=== PATIENT | male | born 2005 | race Caucasian/White ===

== ENCOUNTER 2024-11-05 18:34 | Day surgery (SDC) | payer BC, SELFPAY ==
[2024-11-05] VITALS (11 sets, daily range): BP systolic 113–140; BP diastolic 53–87; BMI 20.5; BMI 21.1
[2024-11-05] MEDS: DILAUDID 0.5 MG IV (12:17)
[2024-11-05] MEDS: ANCEF 10 IV (12:18)
--- NOTE | 2024-11-05 12:36 | ED.GENMED ---
History of Present Illness
General
Chief Complaint: Skin Surface Trauma
Source: patient
Time Seen by Provider: 11/05/24 12:09
History of Present Illness
History of Present Illness:
19-year-old male presents emergency room complaining of of injury to his left ankle from a lawnmower. Patient was using a lawnmower when he felt an insect on his back. He went to swat it and lost his balance causing him to trip over the lawnmower
and get hit in the ankle by the blade. He was wearing a heavy work boot which the blade cut through resulting in a laceration to his medial ankle. Patient is complaining of numbness of the area around his heel. He did not observe pulsatile
bleeding but his foot was in a boot initially. He has significant pain.
Phy Exam
Physical Exam
Physical Exam:
General: Awake, Alert, Oriented X3. Appears uncomfortable due to pain
Vitals: unremarkable
Head: Atraumatic
Eyes: Pupils equal, EOMI
Throat: Airway intact, no exudates
Neck: Trachea midline
Lungs: Clear and equal b/l
Heart: Regular rate, no murmurs
Neuro: Nonfocal
Skin: Warm, dry, no rash
Extremities: pulses equal b/l, no edema. MICHAEL to palpate we pulses in the posterior tibial and dorsalis pedis arteries bilaterally. Cap refill is brisk. There is a large 8 cm laceration noted at the base of the ankle extending around to the
posterior heel. The laceration overlies the Achilles tendon insertion. Patient is able to dorsiflex with pain. No pulsatile bleeding.
Course
Orders/Labs/Results
Orders:
Orders
11/05/24
CR Heel/os Calcis - Left 2 Vw* Routine
Reason For Exam: DEBRIDEMENT LEFT OS CALCIS FX
RF Fluoroscopy, C-arm Routine
11/05/24 Breakfast
Regular
At Your Request: Full Participation
Does patient need a safe tray?: No
11/05/24 12:13
HYDROmorphone [Dilaudid] 0.5 mg IV NOW STA
Ankle, Right 3 view CR [CR Ankle - Right Min 3 Views *] Urgent
Comment:
Reason For Exam: lawmower for ankle
11/05/24 12:14
CeFAZolin 2 GRAM [Ancef] 2 grams in 10 ml IV NOW
11/05/24 15:31
HYDROmorphone [Dilaudid] 1 mg .ROUTE .STK-MED ONE
11/05/24 15:33
HYDROmorphone [Dilaudid] 1 mg IV NOW STA
11/05/24 15:48
Tetanus/Diphth/Acelpertussis [Adacel] 0.5 ml IM .ONCE ONE
11/05/24 17:06
HYDROmorphone [Dilaudid] 1 mg .ROUTE .STK-MED ONE
11/05/24 17:47
Bupivacaine Pf 0.5% [Sensorcaine 0.5% Single Dose] 30 ml .ROUTE .STK-MED ONE
11/05/24 18:40
Dexamethasone Sod Phosphate [Decadron] 20 mg .ROUTE .STK-MED ONE
Fentanyl Citrate/Pf [Sublimaze] 100 mcg .ROUTE .STK-MED ONE
Lidocaine 2% Mpf [Xylocaine Mpf 2%] 100 mg .ROUTE .STK-MED ONE
Midazolam HCl [Versed] 2 mg .ROUTE .STK-MED ONE
Ondansetron Injectable [Zofran] 4 mg .ROUTE .STK-MED ONE
Propofol [Diprivan] 20 ml .ROUTE .STK-MED
11/05/24 20:24
Acetaminophen 1000MG/100Ml [Ofirmev] 1,000 mg in 100 ml .ROUTE .STK-MED
11/05/24 20:41
Fentanyl Citrate/Pf [Sublimaze] 25 mcg IV [id number] PRN
HYDROmorphone [Dilaudid] 0.25 mg IV PACU-Q5MPRN PRN
HYDROmorphone [Dilaudid] 0.5 mg IV PACU-Q5MPRN PRN
Prochlorperazine [Compazine] 5 mg IV PACU-ONCEPRN PRN
Notify MD As Directed
Notify physician if: for SDS patients with known or suspected sleep obstructive sleep apnea, monitor in the
PACU.
Notify MD for any apneic/desaturation episodes
O2 Therapy [RESP] Urgent
Titrate/Wean O2 to maintain O2 sat greater than (%): 92
Special Instructions: -Provide supplemental oxygen to achieve O2 sat of 92% or greater.
-After 15 min, may wean O2 and discontinue if patient is able to maintain O2 sat of 92%
or greater during recovery period.
If patient is a discharge home, without oxygen therapy, notify anestheiologist if
unable to maintain O2 SAT of 92% or greater on room air for MD clearance.
11/05/24 20:45
Normosol (Mult Electrolytes) [Normosol-R/Plasmalyte-A] 1,000 ml IV PER PROTOCOL
11/05/24 20:54
Propofol [Diprivan] 60 ml .ROUTE .STK-MED
11/05/24 21:02
Ketorolac [Toradol] 30 mg .ROUTE .STK-MED ONE
11/05/24 21:50
CeFAZolin 2 GRAM [Ancef] 2 grams in 10 ml IV PRE PROCEDURE
Oxycodone [Roxicodone] 5 mg PO Q4HPRN PRN
Weight Bearing Status As Directed
Weight bearing to: Left lower extremity
Type: Non Wt. bearing
Physical Therapy Consult [Pt Eval And Treat] Routine
Treatment: nwb to LLE
Activity Level: Out of Bed-Early Mobility
11/05/24 22:22
Code Status As Directed
Resuscitation Status: Full Code
Bisacodyl [Dulcolax] 10 mg RECTAL [id number] PRN
Docusate W/Senna [Senokot-S] 1 tablet PO BIDPRN PRN
Polyethylene Glycol Powder [Miralax] 17 grams PO DAILYPRN PRN
Activity As Directed
Activity Level: As Tolerated
Comment: NWB to left LE
Pneumatic Compression Sleeves As Directed
Type: Knee high
Vital Signs As Directed
Frequency: Per unit guidelines
DX Deep Vein Thrombosis Video Routine
11/05/24 22:40
ORTHOPEDIC CONSULT Routine
Consulting Provider: Otto Rivera
Was physician already notified: Yes
11/05/24 23:00
Ondansetron Injectable [Zofran] 4 mg IV PACU-ONCEPRN PRN
11/06/24 03:00
Acetaminophen [Tylenol] 650 mg PO Q4HPRN PRN
Ibuprofen [Motrin] 600 mg PO Q4HPRN PRN
11/06/24 04:00
CeFAZolin 2 GRAM [Ancef] 2 grams in 10 ml IV Q8H
11/06/24 05:41
Basic Metabolic Panel IN AM
Complete Blood Count/No Diff IN AM
11/06/24 11:00
Amoxicillin 875 mg/Clav 125 mg [Augmentin 875 mg/125 mg] 1 tablet PO Q12
11/06/24 11:46
Discharge Patient As Directed
Discharge patient after: seen again by Dr. Hernandez
Do you have a designated caregiver: Yes-same as spokesperson
11/06/24 12:00
Aspirin Chewable [Low Strength Aspirin] 81 mg PO BID
Abnormal Lab Results
11/06/24
05:41
RBC 4.33 L 10^6/uL
(4.70-6.10)
Hgb 12.7 L g/dL
(13.0-18.0)
Hct 36.2 L %
(39.0-52.0)
MPV 11.6 H fL
(7.4-10.4)
Glucose 112 H mg/dl
(70-99)
11/06/24 05:41
11/06/24 05:41
Vital Signs
Initial and Last Documented VS:
Initial Vital Signs
Temp Pulse Resp BP Pulse Ox
98.2 F 90 16 130/74 98
11/05/24 11:58 11/05/24 11:58 11/05/24 11:58 11/05/24 11:58 11/05/24 11:58
Last Documented Vital Signs
Temp Pulse Resp BP Pulse Ox
98 F 72 16 112/72 99
11/06/24 11:05 11/06/24 11:05 11/06/24 11:05 11/06/24 11:05 11/06/24 11:05
MDM/Problems Addressed
Differential Diagnosis Includes:
Achilles tendon laceration, vascular injury, nerve injury, open fracture
MDM/Problems Addressed:
Patient presents with large laceration to the left ankle which was inflicted by a lawnmower. Evaluation of the laceration reveals that is quite deep and I suspect there is significant injury to deeper structures. Not amenable to closure in the
emergency room. Communicated with podiatry. They will take the patient to the operating room. IV antibiotics administered. Tetanus updated.
*Radiology
Radiology exam reviewed: radiology read reviewed
*Pulse Oximetry
SaO2: 98
Oxygen Mode of Delivery: Room air
Patient hypoxic: no
*Critical Care Note
Total Time (30-74mins, 75-104mins- exclusive of procedures): Not Applicable
ED Attending Note
-
Portions of this chart may have been created with voice recognition software.� Occasional wrong word or��sound alike� substitutions may have occurred due to the inherent limitations of voice recognition software.
Discharge Plan
Departure
Patient Disposition: OR
Presentation/result/management discussed w/ accepting MD/DO: Dr. Flowers
Condition: Fair
Discharge Problem:
Open fracture of calcaneus, Laceration of lower leg, left, complicated
Interventions
Interventions:
*Risk Screen - Suicide Last Done: 11/05/24 11:58
*General Assessment Last Done: 11/05/24 12:21
*Neglect/Abuse Screening Last Done: 11/05/24 12:21
*ED- Fall Risk Assessment Last Done: 11/05/24 12:21
*ED COVID-19 Vaccine History Last Done: 11/05/24 22:40
*Nursing Disposition Last Done: 11/05/24 18:33
ED-Skin Assessment Last Done: 11/05/24 12:21
Discharge Date and Time
Discharge Date/Time: 11/05/24 18:34
[2024-11-05] MEDS: DILAUDID 1 MG IV (15:34)
--- NOTE | 2024-11-05 17:13 | W.PN.UPDATE ---
Update Note
Progress Note Update
19M sustained open calcaneal fx 2/2 lawnmower injury. laceration medial heel, no pulsatile bleeding, sensation intact to pedal distributions, gross motor function intact to lesser toes
- plan for OR today left foot laceration exploration with debridement
- remain NPO, NPO since 11am
- NWB LLE
- IV abx
- analgesia prn
- full consult note to follow
--- NOTE | 2024-11-05 21:47 | W.PN.SURGUPD ---
Surgical Update
Surgical Update
19 yo M s/p L ankle laceration exploration, calcaneal fracture treatment, Achilles tendon repair
-Strict NWB to LLE
-PT/OT
-Continue ancef
-Multimodal analgesia
-DC on 7-10 days antibiotics
-Follow up with myself in 2 weeks at [facility]
--- NOTE | 2024-11-05 22:09 | SUR.PHASEI ---
Rec'd sleepy flat in bed, oriented x3 by RN, denies c/o,
--- NOTE | 2024-11-05 22:15 | HPS.HSE ---
Family Physician
-
Family Physician: NOT KNOW UNKNOWN - PT DOES
Chief Complaint
-
left ankle pain
History of Present Illness
19-year-old male with no significant PMH presents emergency room complaining of of injury to his left ankle from a lawnmower. Patient was using a lawnmower when he felt an insect on his back. He went to swat it and lost his balance causing him to
trip over the lawnmower and get hit in the ankle by the blade. He was wearing a heavy work boot which the blade cut through resulting in a laceration to his medial ankle. Patient is complaining of numbness of the area around his heel. patient
underwent ankle laceration exploration, calcaneal fracture treatment, and Achilles tendon repair. At present patient denies any headache, fever, chills, chest pain, shortness of breath. Patient denies any abdominal pain, nausea, vomiting or
diarrhea. Patient denies dysuria, hematuria.
Medical History
Past Medical History
Past Medical History: Reports None
Past Surgical History: Reports Other
Additional Past Surgical History:
Lip laceration repair
Social History
Tobacco: Non-smoker
Alcohol: None
Drug: None
Family History
Family History: Not pertinent
Allergies / Home Medications
Allergies reflects when Allergies were last updated in [facility].
Home Medications with original date entered in [facility]
Allergy/Medication List:
Allergies
Allergy/AdvReac Type Severity Reaction Status Date / Time
No Known Allergies Allergy Verified 11/05/24 11:59
Review of Systems
-
Constitutional: Reports No Symptoms
EENT: Reports No Symptoms
Respiratory: Reports No Symptoms
Cardiac: Reports No Symptoms
Abdomen/GI: Reports No Symptoms
: Reports No Symptoms
Musculoskeletal: Reports No Symptoms
Skin: Reports No Symptoms
Neurological: Reports No Symptoms
Endocrine: Reports No Symptoms
Hematologic/Lymphatic: Reports No Symptoms
Psych: Reports No Symptoms
Physical Exam
Vital Signs
Vital Signs
Temp Pulse Resp BP Pulse Ox
97.8 F 67 11 113/53 100
11/05/24 22:03 11/05/24 22:03 11/05/24 22:03 11/05/24 22:03 11/05/24 22:03
Physical Exam
General: Well Developed, Well Nourished and No Apparent Distress
HEENT: NormoCephalic, Moist mucous membranes and Atraumatic
Respiratory: Clear
Cardiac: S1/S2 and Regular Rhythm; No Murmur or Rub
GI: Soft, Non Tender, Non Distended and Normal Bowel Sounds; No Organomegaly
Rectal: Deferred by Provider
Musculoskeletal: No Clubbing, No Cyanosis and No Edema
Skin: Rash and Other (Left lower extremity is wrapped)
Neuro: Nonfocal/grossly intact
Impression/Plan
-
# Left ankle fracture
- X-ray with the impression ofopen fracture of the superior posterior aspect of the calcaneus with deformity of soft tissues in this region
- Underwent left ankle laceration exploration, calcaneal fracture treatment, Achilles tendon repair
- Strict nonweightbearing to left lower extremity
- PT/OT consult
- Ancef continue
- Tylenol,Motrin, oxy as needed for pain
#DVT prophylaxis
- SCDs
# CODE STATUS
- Full code
--- NOTE | 2024-11-05 22:19 | SUR.PHASEI ---
More alert, [facility] in
[2024-11-06 00:45] VITALS: BP 114/67
[2024-11-06 01:45] VITALS: BP 106/59
--- NOTE | 2024-11-06 02:54 | W.PN.UPDATE ---
Update Note
Progress Note Update
Patient seen in conjunction with SHAN. I agree with her findings on history and physical. I concur with the assessment and plan as stated otherwise.
Briefly, this is a healthy 19-year-old with no known signal past medical history who was at her laceration to the foot following a lawnmower which.
He is status post ankle laceration exploration, calcaneal fracture treatment, Achilles tendon repair. No intraoperative complications. Patient postoperatively is doing rather well without any acute complaints. He is hemodynamically stable and in
no acute distress.
Assessment and plan
19-year-old who is status post ankle laceration exploration, calcaneal fracture treatment, Achilles tendon repair. Podiatry has seen and evaluated patient and placed recommendations.
From medical perspective patient can be managed as per podiatry recommendations
- No weightbearing to the left lower extremity
� Pain control
� Continued on antibiotics Ancef and d/c on abx for a 7-10 day course
� PT OT
DVT PPX - SCDs
Code status - full code
[2024-11-06 03:00] VITALS: BP 103/60
[2024-11-06] MEDS: ANCEF 10 IV (04:16)
[2024-11-06 06:17] LABS: Hematocrit 36.2 % (39.0-52.0); Hemoglobin 12.7 g/dL (13.0-18.0); Mean Corp Hgb Conc. 35.1 g/dL (33.0-37.0); Mean Corpuscular Volume 83.6 fL (80.0-94.0); Platelet Count 186 10^3/uL (130-400); Red Cell Dist. Width 12.2 % (11.5-14.5)
[2024-11-06 06:26] LABS: Blood Urea Nitrogen 13 mg/dl (9-20); Calcium 9.0 mg/dl (8.4-10.2); Carbon Dioxide 25 mmol/L (22-30); Chloride 105 mmol/L (98-107); Estimated Creatinine Clearance > 125 ml/min; Glucose 112 mg/dl (70-99); Potassium 4.5 mmol/L (3.5-5.1); Sodium 137 mmol/L (135-145); eGFR > 60.00
[2024-11-06 07:10] VITALS: BP 113/60
--- NOTE | 2024-11-06 09:56 | CON.SURG ---
Surgical Consultation
-
CONSULTING PHYSICIAN: Otto Rivera DPM
DATE/TIME OF REQUEST: 11/05/2024
DATE/TIME OF CONSULTATION: 11/05/2024
SUBJECTIVE: Patient is a 19-year-old male who sustained laceration
to the left heel earlier today. He came to the ER. Patient was
mowing lawn earlier today and, after fall, had his left foot under
the party plan selling distributor, sustaining laceration. He was brought to the ER and
is with father today. 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
tobacco, or illicit drug use. He drives a stick shift car. Denies
fever, chills, chest pain, shortness of breath. Complains of pain
to the heel and minimal numbness to the top of the foot when the
dressing is too tight.
PHYSICAL EXAMINATION:
GENERAL: Patient is well nourished, in no acute distress.
LEFT LOWER EXTREMITY: DP, PT pulses palpable bilateral. Capillary
refill brisk to all pedal digits. Sensation intact to all pedal
distributions. Gross motor function intact to lesser toes. FHL
reduced range of motion. There is approximately a 10 cm laceration
to the medial heel, extending from medial Achilles insertion to the
medial malleolus. Wound bed is predominantly clean, no pulsatile
bleeding. Exam limited to patient's tolerance.
Left foot radiograph: Agree with radiologist's impression.
Non-displaced, avulsed fracture fragment at the superior posterior
calcaneus.
VITAL SIGNS: Pulse 90, respirations 16, temperature 98.2,
saturating on room air.
IMPRESSION AND PLAN: The patient is a 19-year-old male with left
heel laceration and with open left calcaneus fracture that is
nondisplaced secondary to party plan selling distributor injury. Continue antibiotics.
Will plan
for OR debridement, as well as exploration of
laceration. The patient will remain n.p.o. (last date 11:00 am
11/05/2024). He will remain nonweightbearing to the left foot.
Dressing placed. Saline wet-to-dry.
--- NOTE | 2024-11-06 10:00 | OR.RPT ---
Operative Report
Operative Report
OPERATIVE REPORT
Date of Surgery:�11/05/2024
Surgeon:�Otto Rivera DPM
Assistants:�Otto Hernandez DPM
Preoperative Diagnosis:
Traumatic open laceration, medial left ankle (~8 cm), secondary to lawnmower injury
Open dorsal calcaneal fracture
Suspected Achilles tendon laceration, left ankle
Postoperative Diagnosis:
Traumatic open laceration, medial left ankle (~8 cm)
Open dorsal calcaneal fracture with devitalized bone fragment
Complete Achilles tendon laceration, left ankle
Procedure(s) Performed:
Debridement of open fracture with removal of devitalized bone fragment, left calcaneus (68526)
Primary repair of Achilles tendon, left ankle ([id number])
Layered closure of traumatic wound
Anesthesia:�MAC anesthesia with 10ccs of 0.5% bupivacaine plain
Hemostasis: Thigh tourniquet which was inflated at 300mmHg for 11 minutes
Estimated Blood Loss:�Minimal
Specimens:�None
Materials: 0 PDS, 2-0 PDS, 3-0 Monocryl, 3-0 Prolene
Complications:�None
Indications for Procedure:
The patient is a 19-year-old male who sustained a traumatic lawnmower laceration to the medial aspect of the left ankle at 11:00AM on 11/05/2024. The wound measured approximately 8 cm with exposure of soft tissue and underlying bone. Radiographs
confirmed a dorsal calcaneal fracture fragment, and there was clinical concern for Achilles tendon involvement. Given the open fracture with tendon injury, operative exploration, debridement, and repair were indicated. Risks, benefits, and
alternatives were explained to the patient, who provided informed consent.
Procedure in Detail:
The patient was brought to the operating room, placed in the supine position, and administered MAC anesthesia. The left lower extremity was prepped and draped in sterile fashion. A well padded thigh tourniquet was applied.
Attention was turned to the medial ankle which demonstrated an approximately 8cm laceration. There was no gross contamination noted to the wound. The traumatic laceration was carefully and thoroughly explored. There was no evidence of neurovascular
disruption. The tendons and other vital structures within the tarsal tunnel were examined and noted to be intact. The thigh tourniquet was briefly inflated to 300mmHg for thorough inspection of all major vessels and promptly deflated afterwards.
Attention was directed to the dorsal calcaneal fracture site. A small devitalized fracture fragment was identified. The wound, including skin, subcutaneous tissue, muscle, and bone, was sharply debrided of nonviable tissue. The dorsal calcaneal
fragment was excised, consistent with management of an open fracture. Copious irrigation was performed using several liters of sterile saline. There were no signs of residual contamination, foreign material, or infection.
The Achilles tendon was then visualized and found to be lacerated roughly 2/3rds of the cross-sectional area. The ends were refreshed and directly repaired using interrupted 0 PDS sutures in an [id number] configuration, restoring tendon
continuity and physiologic tension.
Following hemostasis, the wound was closed in layers. The deep tissue was reapproximated with 2-0 PDS, the subcutaneous layer with 3-0 Monocryl, and the skin with interrupted 3-0 Prolene sutures. A sterile dressing and a posterior splint in slight
plantarflexion were applied.
The patient tolerated the procedure well and was transferred to recovery in stable condition. He will admitted post-operatively for 24 hours and receive IV antibiotics followed by a 7-10 day course of oral antibiotics upon discharge. He will be
strictly non-weightbearing to his left lower extremity. He will follow up in the office in 1-2 weeks for an incision check.
--- NOTE | 2024-11-06 10:01 | W.PN.UPDATE ---
Update Note
Progress Note Update
19 yo M s/p L ankle laceration exploration, calcaneal fracture treatment, Achilles tendon repair. CFT wnl, no pretibial pain, sensation intact to dorsal pedal distributions, tibial nerve block still active, gross motor function intact to all toes
through full ROM, calves soft supple nontender to touch, dressings c/d/i
-Strict NWB to LLE
-PT/OT
-Continue ancef
- dressings to remain C/D/I until seen in office
-Multimodal analgesia (ice/elevation, motrin/tylenol)
-DC on 7-10 days broad spectrum po antibiotics
- Asa 81 BID for DVT ppx
-Follow up with Dr. Rivera in 2 weeks at [facility]
- patient stable for discharge to follow up in office
--- NOTE | 2024-11-06 10:29 | W.PN.HOSP.TC ---
Today's Communication/Plan
-
OK for DC after PT recommendations
Assessment / Plan
Assessment / Plan
Assessment and plan
19-year-old who is status post ankle laceration exploration, calcaneal fracture treatment, Achilles tendon repair. Podiatry has seen and evaluated patient and placed recommendations.
-NWB to LLE
-PT, trial of crutches
-will change abx to Augmentin per Podiatry recommendations
-OK for DC
- patient refuses TDap vaccine. Per reccomendations he would receive both vaccine and immune globulin. He was resistant to talk to me about getting vaccines or his vaccine history. I said my job is to educate, he was able to repeat back to me
what tetanus can cause, continues to refuse vaccine.
Anticipated Discharge: Today
Subjective/Interval History
-
Date of Service: November 06, 2024
patient is feeling well this morning and wants to go home
about to work with physical therapy
Objective Data
-
Labs:
Laboratory Results
11/06/24
05:41
WBC 10.6
Hgb 12.7 L
Hct 36.2 L
Plt Count 186
Sodium 137
Potassium 4.5
Chloride 105
Carbon Dioxide 25
BUN 13
Creatinine 0.8
Glucose 112 H
Calcium 9.0
Vital Signs:
Vital Signs
Temp Pulse Resp BP Pulse Ox
98.1 F 72 16 113/60 99
11/06/24 07:10 11/06/24 07:10 11/06/24 07:10 11/06/24 07:10 11/06/24 07:10
I&O
11/05/24 11/06/24 11/07/24
06:59 06:59 06:59
Intake Total 1880 / 1880
Output Total 1800 / 1800
Balance 80 / 80
Review of Systems
-
History Source: Patient
All other systems: Reviewed and negative
Physical Exam
-
General: No Apparent Distress
HEENT: PERRLA
Respiratory: Clear to Auscultation; Negative Wheezes
Cardiac: Regular Rhythm and S1/S2
GI: Soft and Nontender
Musculoskeletal: Other (LLE wrapped in gauze )
Skin: Warm and Dry; Negative Rash
Neuro: AO x 3
Psych: Calm
Data Reviewed
-
Diagnostic Radiology: Report Reviewed by me
Labs: Labs Reviewed by me
[2024-11-06 11:05] VITALS: BP 112/72
[2024-11-06 11:20] VITALS: BP 112/72; PULSE 72
--- NOTE | 2024-11-06 11:47 | W.DS.TRANS ---
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
-
Discharge Instructions:
Discharge Diagnosis/Procedures s/p L ankle laceration exploration, calcaneal
fracture treatment, Achilles tendon repair
25
Additional Activity no weight bearing left lower extremity, use
crutches
Driving Restrictions No driving
Bathing Restrictions None
Instructions:
Stand-Alone Forms:
Changes to Home Medications: Yes
Discharge Medications:
DC Medications w/original date entered in [employer]
amoxicillin 875 mg-potassium clavulanate 125 mg tablet 1 tab PO Q12 #19 tabs 11/06/24
aspirin 81 mg chewable tablet 81 mg PO BID #55 tabs 11/06/24
Home Medication Changes
Addition of Augment x 10 days in Aspirin 81mg PO BID for DVT PPx
Pending Results: No
[2024-11-06] MEDS: AUGMENTIN 875 MG/125 MG 1 TABLET PO (12:07)
[2024-11-06] MEDS: LOW STRENGTH ASPIRIN 81 MG PO (12:08)
--- NOTE | 2024-11-06 12:54 | CM ---
CM following re: discharge planning.
Reviewed pt's chart, met with pt.
Pt is a 19 year old male, admitted with [facility] status and primary dx of Left ankle fracture, POD#1 status post ankle laceration exploration, calcaneal fracture treatment, Achilles tendon repair.
Pt reports he lives with mother and father 2SH, 1 step to enter. pt reports he came to [facility] to help his uncle to mower the loan and fractured his ankle.
PT and OT evaluation noted - pt has no skilled needs, remains NWB on LLE, receives crutches to use and will follow up with podiatry.
Discharge orderer noted. Pt is aware and he stated his parents will transport home.
D/C plan: home no after care VN needs. Parents to transport.
--- NOTE | 2024-11-06 13:58 | W.DCSUMMARY ---
Discharge Summary
Discharge Data
Date of Admission: 11/05/24
Date of Discharge: 11/06/24
-
Pending Results: No
Hospital Course
Discharging Physician : Dr. Marilyn Robert
Disposition : Home
Primary care physician : *Unknown
Principal Discharge diagnosis : Open calcaneal fracture secondary to lawnmower injury. status post ankle laceration exploration, calcaneal fracture treatment, Achilles tendon repair on 11/05/24
Hospital Course :
Mr. Alan Caba is a 19 yo man without significant past medical history who presents to the ER after he tripped over a lawnmower resulting in getting a laceration to ankle from blade. He was seen by Podiatry in the ER and taken to surgery. He
is status post ankle laceration exploration, calcaneal fracture treatment, Achilles tendon repair. Patient did well post-op, instructed to avoid weight bearing LLE. He worked with crutches with PT. He is discharged on 10 days Augmentin and
Aspirin 81mg PO BID for DVT PPx per Podiatry recommendations. He will follow up with Dr. Rivera in 2 weeks.
Of note, patient refused TDAP vaccination or immune globulin. He states he got all of his childhood vaccinations but when I asked when his last vaccine was he refused to tell me. His mom was present for one conversation on speaker phone. He is
able to tell me that tetanus can lead to muscle rigidity, difficulty breathing and swallowing. He was educated that tetanus is in the soil and therefore he is at risk from this accident but continues to refuse.
Time spent on discharge was 35 minutes.
Important imaging findings :
Ankle X-Ray 11/05/24
IMPRESSION:
There is an open fracture of the superior posterior aspect of the calcaneus with deformity of soft tissues in this region
Procedure findings :
Discharge Plan
-
Patient Disposition: Home (Routine Discharge)
Discharge Diagnosis/Procedures: s/p L ankle laceration exploration, calcaneal fracture treatment, Achilles tendon repair 11/05/24
Additional Activity: no weight bearing left lower extremity, use crutches
Driving Restrictions: No driving
Bathing Restrictions: None
Referrals:
Otto Rivera MD [Active, Podiatry] - in two weeks
UNKNOWN - PT DOES,NOT KNOW [Family Provider]
Additional Discharge Medication Instructions: Please follow up with your PCP within one week
You may use ice to help with pain. You may take Tylenol 1G every 6 hours as needed (no more than 4G/ 24 hours). You can take Motrin 600mg once every 6-8 hours as needed (always take with food to help protect lining of your stomach).
Complete 10 day course of Augmentin. You may buy probiotics over the counter
Take aspirin 81mg twice a day to prevent blood clots (You are prescribed 28 days, follow up with Dr. Rivera how long should continue)
Prescriptions:
New
amoxicillin-pot clavulanate 875-125 mg Tablet
1 tab PO Q12 Qty: 19 0RF
aspirin 81 mg Tablet,Chewable
81 mg PO BID Qty: 55 0RF
Discharge Orders:
Discharge Patient (As Directed); Ordered 11/06/24
Ordered By: Marilyn Robert
Discharge Date and Time
Print Language: BRUNEIAN
== END 2024-11-06 15:00 | disposition home or self-care (01) ==
LOC: SDS 18:34
PROVIDERS: Registered Nurse; ATTENDING PHYSICIAN Student in an Organized Health Care Education/Training Program; CONSULT PHYSICIAN Student in an Organized Health Care Education/Training Program; EMERGENCY PHYSICIAN Emergency Medicine
DX: S82.892A Other fracture of left lower leg, initial encounter for closed fracture (principal); S86.029 Laceration of unspecified Achilles tendon; S92.002B Unspecified fracture of left calcaneus, initial encounter for open fracture; W28.XXXA Contact with powered lawn mower, initial encounter
CPT/HCPCS: 27650; 73610; 73650; 76000; 80048; 85027; 96374; 96375; 96376; 97116; 97163; 99284